=== PATIENT | male | born 1960 | race Caucasian/White ===

== ENCOUNTER 2020-02-26 15:19 | Outpatient (REF) | payer BC, SELFPAY ==
[2020-02-26 16:13] LABS: Anion Gap 14 (12-20); Calcium 8.9 mg/dL (8.4-10.2); Carbon Dioxide 26 mmol/L (22-29); Chloride 103 mmol/L (96-108); Magnesium 2.1 mg/dL (1.6-2.6); Phosphorus 3.6 mg/dL (2.7-4.5); Potassium 4.1 mmol/l (3.3-5.1); Sodium 139 mmol/L (135-145)
[2020-02-26 16:45] LABS: T4 Thyroxine 6.1 ug/dL (4.5-12.0)
[2020-02-26 17:06] LABS: Erythrocyte Sedimentation Rate 5 MM/HR (0-15)
[2020-03-04 06:52] LABS: Aldolase 6.2 U/L (<=8.1)
== END 2020-02-26 15:20 | disposition home or self-care (01) ==
LOC: HO.LAB 15:19
PROVIDERS: PCP Internal Medicine; Visit Provider Psychiatry & Neurology Neurology
DX: R25.2 Cramp and spasm (principal)
CPT/HCPCS: 36415; 80051; 82085; 82310; 82550; 83735; 84100; 84436; 84443; 85652

== ENCOUNTER 2020-06-25 07:59 | Outpatient (RCR) | payer BC, SELFPAY | END 2020-06-27 10:31 | disposition home or self-care (01) | LOC: HO.WCC 07:59 | PROVIDERS: Visit Provider Physician Assistant | DX: S81.812D Laceration without foreign body, left lower leg, subsequent encounter (principal); I87.2 Venous insufficiency (chronic) (peripheral); F17.200 Nicotine dependence, unspecified, uncomplicated; Z71.6 Tobacco abuse counseling | CPT/HCPCS: 99211 ==